=== PATIENT | female | born 1955 | race Caucasian/White ===

== ENCOUNTER 2018-12-26 07:42 | Emergency (ER) | payer BC, OTHER ==
[2018-12-26] MEDS: KETOROLAC 60 MG INJ IM (08:07)
[2018-12-26] MEDS: DEXAMETHASONE 10 MG/ML 1 ML INJ IM (08:07)
== END 2018-12-26 09:15 | disposition home or self-care (01) ==
LOC: FTE 09:15
DX: M25.551 Pain in right hip (principal); I10 Essential (primary) hypertension; Z79.82 Long term (current) use of aspirin
CPT/HCPCS: 73502; 73510; 96372; 99284-25